=== PATIENT | male | born 1960 | race African-American/Black ===

== ENCOUNTER 2016-08-30 13:15 | Day surgery (SDC) | payer MEDICAID ==
[~2016-08-30] VITALS: Ht 172.7 cm; Wt 122.3 kg
[2016-08-30] MEDS ORDERED: CARDURA4 MG PO (14:26)
[2016-08-30] MEDS ORDERED: PRAVASTATIN SOD10 MG PO (14:26)
[2016-08-30] MEDS ORDERED: COZAAR100 MG PO (14:27)
[2016-08-30] MEDS ORDERED: LOPRESSOR25 MG PO (14:27)
[2016-08-30] MEDS ORDERED: NORVASC10 MG PO (14:27)
[2016-08-30] MEDS ORDERED: HYDRALAZINE HCL10 MG PO (14:27)
[2016-08-30] MEDS ORDERED: ISOSORBIDE MONO60 M1 PO (14:27)
[2016-08-30] MEDS ORDERED: BAYER CHEWABLE81 MG PO (14:28)
[2016-08-30 14:31] LABS: BASOPHILS 0.7 % (0.0-2.0); EOSINOPHILS 8.5 % (0-7); HEMATOCRIT 40.1 % (42.0-54.0); HEMOGLOBIN 13.3 g/dL (13.5-17.5); IMMATURE GRANULOCYTES 0.2 % (0-5); LYMPHOCYTES 43.5 % (15-50); MCH 30.6 pg (26.0-34.0); MCHC 33.2 g/dL (31.0-37.0); MCV 92.2 fL (80.0-100.0); MEAN PLATELET VOLUME 11.5 fL (7.4-10.4); MONOCYTES 6.6 % (2-11); NEUTROPHILS 40.5 % (40-80); PLATELET COUNT 184 10x3/uL (130-400); RBC 4.35 10x6/uL (4.20-6.10); RDW 12.5 % (11.5-14.5); WBC 4.6 10x3/uL (4.8-10.8)
[2016-08-30 14:39] VITALS: BP 115/63; Ht 172.7 cm; Wt 122.3 kg
[2016-08-30 14:40] LABS: ANION GAP 13.5 mmol/L (8-16); CALCIUM 9.2 mg/dL (8.5-10.1); CREATININE - SERUM 1.3 mg/dL (0.6-1.3); POTASSIUM - SERUM 3.5 mmol/L (3.5-5.1)
--- NOTE | 2016-08-30 17:13 | NUR ---
1640 BACK FROM COLONOSCOPY,PASSING AIR RESP EVEN AND NONLABORED AND NO COS OF PAIN.
--- NOTE | 2016-08-30 17:20 | NUR ---
1710 RESP EVEN AND NONLABORED, DENIES PAIN NO NEEDS VOICED.
--- NOTE | 2016-08-30 17:53 | NUR ---
1748 DISCHARGED VIA W/C WITH FAMILY.
--- NOTE | 2016-08-30 17:53 | NUR ---
1740 UP AND VOIDED HAS TOLERATED FULL LIQUIDS. IV DCD CATHETER INTACT WENT OVER DISCHARGE INSTRUCTIONS AND VERBALLY UNDERSTANDS.
--- NOTE | 2016-09-18 12:04 | OP ---
PATIENT NAME: MINA BLAKELY MEDICAL RECORD: [id number] :56 LOCATION:[facility] ADMISSION DATE: SURGEON: LULÚ CUEVAS DO DATE OF OPERATION: 08/30/2016 ENDOSCOPIST: Lulú Cuevas DO PROCEDURE: Colonoscopy with biopsy and polypectomy. SCOPE: Olympus video colonoscope. MEDICATIONS: Propofol 350 mg and lidocaine 100 mg per TIVA anesthesia. INDICATION: For TIVA, obstructive sleep apnea and multiple comorbidities including heart disease with status post bypass. INDICATIONS FOR PROCEDURE: Personal history of colon polyps. FINDINGS: Informed consent was given. The patient was made comfortable with the above medications. After reaching an adequate level of sedation by slow IV push, the patient was placed on his left side. The colonoscope was then advanced under direct visualization through the anus to the cecum. The colon prep was good. The mucosa was normal in the cecum, ascending colon, and descending colon. In the transverse colon, a diminutive sessile polyp measuring less than 5 mm was visualized. It was removed by cold biopsy polypectomy with cold forceps. Specimen was retrieved. There was also a polyp in the rectum, which was sessile and measured approximately 7 mm. This was removed by cold snare polypectomy. The specimen was retrieved. Retroflexion was performed and appeared normal. Withdrawal time was 10 minutes. There were also multiple diverticula noted in the distal descending and sigmoid colon. This was of moderate grade. IMPRESSION: 1. Two colon polyps removed by cold biopsy polypectomy and cold snare polypectomy. 2. Diverticulosis. PLAN AND RECOMMENDATIONS: 1. Await pathology to determine exact recall date, but I anticipate that this will be 5 years based on the types of polyps removed. 2. Continue high fiber diet. 3. Continue current medications. TRANSINT:[id number] Voice Confirmation ID: [id number] DOCUMENT ID: [id number] LULÚ CUEVAS DO at 1204 CC: [id number] DICTATION DATE: 08/30/16 1629 [employer] RESE[employer] ASSOCIATE: 08/30/16 2127 [facility] 08/30/16 [place] [address]
== END 2016-08-30 17:45 | disposition home or self-care (01) ==
LOC: D.OPS 13:15
PROVIDERS: Anesthesiology
DX: D12.3 Benign neoplasm of transverse colon (principal); D12.8 Benign neoplasm of rectum; K57.30 Diverticulosis of large intestine without perforation or abscess without bleeding; I25.10 Atherosclerotic heart disease of native coronary artery without angina pectoris; Z95.1 Presence of aortocoronary bypass graft; G47.30 Sleep apnea, unspecified; Z86.010 Personal history of colon polyps